=== PATIENT | female | born 1935 | race Caucasian/White ===

== ENCOUNTER 2020-03-18 16:22 | Emergency (ER) | payer OTHER ==
[~2020-03-18] VITALS: Ht 157.5 cm; Wt 48.1 kg
[2020-03-18] MEDS ORDERED: NEURONTIN800 MG PO (16:50)
== END 2020-03-18 22:27 | disposition home or self-care (01) ==
LOC: ER 16:22
DX: K57.30 Diverticulosis of large intestine without perforation or abscess without bleeding (principal)

== ENCOUNTER 2021-10-29 07:34 | Emergency (ER) | payer OTHER ==
[~2021-10-29] VITALS: Ht 157.5 cm; Wt 52.6 kg
[~2021-10-29 07:34] MED LIST: NEURONTIN800 MG PO
== END 2021-10-29 12:28 | disposition home or self-care (01) ==
LOC: ER 07:34
DX: K57.90 Diverticulosis of intestine, part unspecified, without perforation or abscess without bleeding (principal); R10.32 Left lower quadrant pain; N21.0 Calculus in bladder; N20.0 Calculus of kidney; Z91.013 Allergy to seafood

== ENCOUNTER 2024-12-09 09:01 | Emergency (ER) | payer OTHER ==
[~2024-12-09] VITALS: Ht 157.5 cm; Wt 49.9 kg
[~2024-12-09 09:01] MED LIST changes: +LIPITOR20 MG PO; +XARELTO2.5 MG PO
[2024-12-09] MEDS ORDERED: KETOROLAC TROMETHAMINE 60 MG VIAL IM ONE ×2 (09:11→09:15)
== END 2024-12-09 11:19 | disposition home or self-care (01) ==
LOC: ER 09:01
DX: S69.81XA Other specified injuries of right wrist, hand and finger(s), initial encounter (principal); S89.81XA Other specified injuries of right lower leg, initial encounter; S09.8XXA Other specified injuries of head, initial encounter; W19.XXXA Unspecified fall, initial encounter; Y93.89 Activity, other specified; Y92.098 Other place in other non-institutional residence as the place of occurrence of the external cause; Y99.8 Other external cause status; Z91.013 Allergy to seafood
CPT/HCPCS: 29125; 70150; 73130; 73562; 96372; 99283; J1885